=== PATIENT | male | born 1985 | race Caucasian/White ===

== ENCOUNTER 2016-11-16 08:02 | Emergency (ER) | payer MEDICAID | END 2016-11-16 08:58 | disposition home or self-care (01) | LOC: D.ER 08:02 | DX: R07.81 Pleurodynia (principal); F17.200 Nicotine dependence, unspecified, uncomplicated; I10 Essential (primary) hypertension ==

== ENCOUNTER 2017-01-13 07:09 | Emergency (ER) | payer MEDICAID | END 2017-01-13 09:15 | disposition left against medical advice (07) | LOC: D.ER 07:09 | DX: M54.5 Low back pain (principal) ==

== ENCOUNTER 2017-02-08 15:58 | Emergency (ER) | payer MEDICAID | END 2017-02-08 17:47 | disposition home or self-care (01) | LOC: D.ER 15:58 | DX: K08.89 Other specified disorders of teeth and supporting structures (principal); F41.9 Anxiety disorder, unspecified; I10 Essential (primary) hypertension; F17.200 Nicotine dependence, unspecified, uncomplicated ==

== ENCOUNTER 2017-07-10 10:05 | Emergency (ER) | payer MEDICAID | END 2017-07-10 10:51 | disposition home or self-care (01) | LOC: D.ER 10:05 | DX: K04.7 Periapical abscess without sinus (principal); K08.89 Other specified disorders of teeth and supporting structures; F17.200 Nicotine dependence, unspecified, uncomplicated ==

== ENCOUNTER 2017-07-31 18:30 | Emergency (ER) | payer MEDICAID | END 2017-07-31 21:54 | disposition home or self-care (01) | LOC: D.ER 18:30 | DX: K04.7 Periapical abscess without sinus (principal); K08.89 Other specified disorders of teeth and supporting structures; F17.200 Nicotine dependence, unspecified, uncomplicated ==

== ENCOUNTER 2017-08-29 15:43 | Emergency (ER) | payer MEDICAID | END 2017-08-29 17:23 | disposition home or self-care (01) | LOC: D.ER 15:43 | DX: K04.7 Periapical abscess without sinus (principal); K08.89 Other specified disorders of teeth and supporting structures ==

== ENCOUNTER 2017-09-12 17:06 | Emergency (ER) | payer MEDICAID | END 2017-09-12 21:51 | disposition home or self-care (01) | LOC: D.ER 17:06 | DX: J18.9 Pneumonia, unspecified organism (principal); J06.9 Acute upper respiratory infection, unspecified ==

== ENCOUNTER 2017-11-04 11:45 | Emergency (ER) | payer MEDICAID | END 2017-11-04 13:15 | disposition home or self-care (01) | LOC: D.ER 11:45 | DX: F43.23 Adjustment disorder with mixed anxiety and depressed mood (principal); Z86.59 Personal history of other mental and behavioral disorders; F17.200 Nicotine dependence, unspecified, uncomplicated ==

== ENCOUNTER 2017-12-24 13:07 | Emergency (ER) | payer MEDICAID | END 2017-12-24 15:25 | disposition home or self-care (01) | LOC: D.ER 13:07 | DX: Z86.59 Personal history of other mental and behavioral disorders (principal); F17.200 Nicotine dependence, unspecified, uncomplicated ==

== ENCOUNTER 2018-04-29 12:21 | Emergency (ER) | payer MEDICAID ==
[~2018-04-29] VITALS: Ht 172.7 cm; Wt 72.7 kg
[2018-04-29 12:44] VITALS: BP 131/87; Ht 172.7 cm; Wt 72.7 kg
[2018-04-29 13:02] LABS: BASOPHILS 0.9 % (0-2); HEMATOCRIT 47.3 % (42.0-54.0); HEMOGLOBIN 16.5 g/dL (13.5-17.5); IMMATURE GRANULOCYTES 0.3 % (0-5); LYMPHOCYTES 33.7 % (15-50); MCH 32.7 pg (26.0-34.0); MCHC 34.9 g/dL (31.0-37.0); MCV 93.7 fL (80.0-100.0); MEAN PLATELET VOLUME 9.3 fL (7.4-10.4); MONOCYTES 5.5 % (2-11); NEUTROPHILS 51.6 % (40-80); PLATELET COUNT 185 10x3/uL (130-400); RBC 5.05 10x6/uL (4.20-6.10); RDW 13.7 % (11.5-14.5); WBC 7.6 10x3/uL (4.8-10.8)
[2018-04-29 13:20] LABS: ALBUMIN 3.5 g/dL (3.4-5.0); ALKALINE PHOSPHATASE 166 U/L (46-116); ALT (SGPT) 439 U/L (10-68); CALC OSMOLALITY 277 mosm/kg (275-300); CALCIUM 9.3 mg/dL (8.5-10.1); CARBON DIOXIDE 28.2 mmol/L (21.0-32.0); CHLORIDE - SERUM 105 mmol/L (98-107); CREATININE - SERUM 1.1 mg/dL (0.6-1.3); GLUCOSE 106 mg/dL (74-106); POTASSIUM - SERUM 4.3 mmol/L (3.5-5.1); PROTEIN - SERUM 7.4 g/dL (6.4-8.2); SODIUM 140 mmol/L (136-145); UREA NITROGEN 11 mg/dL (7-18); eGFR NON AFRICAN AMERICAN 82 mL/min (90-120)
== END 2018-04-29 14:59 | disposition left against medical advice (07) ==
LOC: D.ER 12:21
PROVIDERS: Family Medicine
DX: K62.5 Hemorrhage of anus and rectum (principal)

== ENCOUNTER 2018-05-17 05:24 | Emergency (ER) | payer MEDICAID ==
[~2018-05-17] VITALS: Ht 172.7 cm; Wt 80.5 kg
[2018-05-17 05:38] VITALS: BP 126/88; Ht 172.7 cm; Wt 80.5 kg
== END 2018-05-17 06:20 | disposition home or self-care (01) ==
LOC: D.ER 05:24
DX: K64.4 Residual hemorrhoidal skin tags (principal); F17.200 Nicotine dependence, unspecified, uncomplicated

== ENCOUNTER 2018-06-09 09:29 | Emergency (ER) | payer MEDICAID ==
[~2018-06-09] VITALS: Ht 172.7 cm; Wt 81.8 kg
[2018-06-09 09:48] VITALS: BP 125/76; Ht 172.7 cm; Wt 81.8 kg
== END 2018-06-09 11:21 | disposition home or self-care (01) ==
LOC: D.ER 09:29
DX: S93.602A Unspecified sprain of left foot, initial encounter (principal); X50.1XXA Overexertion from prolonged static or awkward postures, initial encounter; Y93.89 Activity, other specified; Y92.019 Unspecified place in single-family (private) house as the place of occurrence of the external cause